=== PATIENT | male | born 1950 | race Caucasian/White ===

== ENCOUNTER → 2016-03-30 | Outpatient (CLI) | payer BC | LOC: GMAB 10:16 | PROVIDERS: ATTEND Family Medicine | DX: Z00.01 Encounter for general adult medical examination with abnormal findings (principal) ==

== ENCOUNTER → 2016-06-14 | Outpatient (CLI) | payer BC | END | disposition home or self-care (01) | LOC: GMAB 13:18 | PROVIDERS: ATTEND Family Medicine | DX: N41.0 Acute prostatitis (principal) ==

== ENCOUNTER → 2017-04-18 | Outpatient (CLI) | payer BC ==
--- NOTE | 2017-04-18 16:27 | US ---
EXAM DESCRIPTION: Venous,Lower Extremity LT CLINICAL HISTORY: 66 years Male LEG SWELLING, leg edema COMPARISON: None. TECHNIQUE: Duplex imaging performed to evaluate the left lower extremity venous structures. Compression imaging and augmentation imaging performed. The common femoral, superficial femoral, popliteal, greater saphenous and posterior tibial veins were examined. FINDINGS: No thrombus is identified in the left lower extremity venous structures. IMPRESSION: No DVT is identified in the left lower extremity. Electronically signed by: Melisa Long 04/18/2017 4:26 PM [facility]
== END ==
LOC: US 15:44
PROVIDERS: ATTEND Physician Assistant
DX: R60.0 Localized edema (principal)

== ENCOUNTER → 2017-04-18 | Outpatient (CLI) | payer BC | LOC: GMAJS 19:51 | PROVIDERS: ATTEND Physician Assistant | DX: R60.0 Localized edema (principal) ==

== ENCOUNTER → 2017-05-03 | Outpatient (CLI) | payer BC | LOC: GMAB 16:47 | PROVIDERS: ATTEND Family Medicine | DX: M79.605 Pain in left leg (principal) ==

== ENCOUNTER → 2017-05-09 | Outpatient (CLI) | payer BC | LOC: GMAB 18:12 | PROVIDERS: ATTEND Family Medicine | DX: R94.5 Abnormal results of liver function studies (principal); M79.605 Pain in left leg; E83.52 Hypercalcemia; R20.2 Paresthesia of skin; R20.9 Unspecified disturbances of skin sensation; M62.81 Muscle weakness (generalized) ==

== ENCOUNTER → 2017-05-12 | Outpatient (CLI) | payer BC ==
--- NOTE | 2017-05-12 14:52 | MRI ---
EXAM DESCRIPTION: Lumbar Spine w/o Contrast MRI. CLINICAL HISTORY: MUSCLE WEAKNESS COMPARISON: None. TECHNIQUE: Multiplanar, multiple standard sequences, non contrast MRI, lumbar spine. FINDINGS: L5-S1: Minimal disc desiccation. Tiny posterior bulge. Minimal facet arthrosis and flavum ligament hypertrophy. Mild canal narrowing. Bilateral foraminal stenosis. L4-5: Disc desiccation with tiny posterior bulge abutting the thecal sac. Right facet arthrosis and bilateral flavum ligament hypertrophy. Mixed signal object almost 1 cm diameter abutting the right facet and the right thecal sac and the descending right L4 nerve in the foramen. Right paracentral canal stenosis and right foraminal stenosis. Left flavum ligament hypertrophy. Moderate left foraminal narrowing. L3-4: Disc desiccation with anterior bulging and endplate ridging. Posterior disc space narrowing. Modic type II endplate reactive changes posterior. Bilateral facet arthrosis and moderate ligament hypertrophy. Cystlike structure abutting the right flavum ligament and facet and impressing on the thecal sac displacing it slightly to the left. Mild canal stenosis. Posterior broad-based 4 mm disc bulge more to the left of midline with left subarticular recess stenosis and the disc abutting the descending left L4 nerve. Moderate right foraminal narrowing and moderate to severe left foraminal stenosis. L2-3: Disc desiccation. Minimal disc space loss posterior. Anterior bulging and endplate ridging. Posterior broad-based 4 mm disc bulge abutting the thecal sac. Bilateral facet arthrosis and flavum hypertrophy more on the right. Moderate canal narrowing. Mild right foraminal narrowing and left foramen patent. L1-2: Disc desiccation and minimal anterior disc space loss. Anterior disc osteophyte bulge with and endplate ridging. Modic Type II anterior endplate reactive changes, anterior and to the right of midline with disc spur complex encroaching on the right foramen which is nearly stenotic. Left foramen patent. Bilateral ligamentum flavum hypertrophy and right facet arthrosis impressing on the lateral thecal sac. Posterior broad-based 4 mm disc bulge, abutting the conus which terminates at this level. Disc encroaching on the upper right subarticular lateral recess and abutting the descending right S2 nerve. Borderline mild canal stenosis T12-L1: Disc desiccation minimal disc space loss. No bulging. Mild right canal foraminal narrowing and left foramen patent. Mild canal narrowing. Minimal bilateral ligament hypertrophy. Paravertebral soft tissues minimal muscle atrophy. Minimal marrow edema in the left L1 pedicle, otherwise normal marrow signal in the remaining vertebral bodies and the posterior elements. Vertebral bodies are not compressed at any level. IMPRESSION: 1. Partially solidified right facet synovial cyst at L4-5 impressing on the right thecal sac and the descending right L4 nerve in the foramen. Right paracentral canal stenosis and right foraminal stenosis. 2. Mostly cystic right facet synovial cyst at L3-4 impressing on the thecal sac. Canal stenosis is multifactorial. Posterior broad-based disc bulge mostly to the left of midline with left subarticular recess stenosis in the disc abutting the descending left L4 nerve. Severe left foraminal stenosis. 3. L1-2. Borderline mild canal stenosis. Bulging disc encroaching on the superior right subarticular lateral recess and abutting the descending right L2 nerve. Right side spondylosis with near stenosis of the right foramen Electronically signed by: Skyler Garcia MD 05/12/2017 2:52 PM [facility]
== END ==
LOC: MRI 08:03
PROVIDERS: ATTEND Family Medicine
DX: M48.061 Spinal stenosis, lumbar region without neurogenic claudication (principal); M71.38 Other bursal cyst, other site; M79.605 Pain in left leg; R20.2 Paresthesia of skin; R20.9 Unspecified disturbances of skin sensation; M62.81 Muscle weakness (generalized); M47.896 Other spondylosis, lumbar region

== ENCOUNTER → 2020-02-25 | Outpatient (CLI) | payer BC, MEDICARE | LOC: YCFC.O 13:17 | PROVIDERS: ATTEND Nurse Practitioner | DX: Z20.828 Contact with and (suspected) exposure to other viral communicable diseases (principal) ==